=== PATIENT | female | born 1935 | race Caucasian/White ===

== ENCOUNTER → 2018-09-01 | Emergency (ER) | payer OTHER ==
[~2018-09-01] MED LIST: KETOROLAC 15 MG INJ IM
[2018-09-01] MEDS: ACETAMINOPHEN 325 MG TAB PO (17:15)
== END | disposition home or self-care (01) ==
LOC: FTE 14:04
DX: M25.561 Pain in right knee (principal); I10 Essential (primary) hypertension; M25.562 Pain in left knee
CPT/HCPCS: 73510; 73562-50; 99284-25